=== PATIENT | female | born 1965 | race Caucasian/White ===

== ENCOUNTER → 2021-02-14 | Outpatient (CLI) | payer BC ==
[~2021-02-14] MED LIST: AZIT250 PO; CETI10 PO; DIPH50 PO; LEVSOD75 PO; METF500 PO; OTC STOOL SOFTENER; RABE20 PO
== END ==
LOC: LAB SHORT 08:50 → LAB 08:50
DX: R30.9 Painful micturition, unspecified (principal)
CPT/HCPCS: 87086